=== PATIENT | female | born 1990 | race African-American/Black ===

== ENCOUNTER 2022-10-27 00:11 | Emergency (ER) | payer MEDICARE, MEDICAID ==
[~2022-10-27] VITALS: Ht 170.2 cm; Wt 108.9 kg
[2022-10-27 00:16] VITALS: BP 138/69
[2022-10-27 00:55] LABS: BASOPHILS # (AUTO) 0.1 K/uL (0.00-0.22); BASOPHILS % (AUTO) 1.1 % (0.0-2.0); EOSINOPHILS # (AUTO) 0.1 K/uL (0-0.4); EOSINOPHILS % (AUTO) 0.5 % (0.0-4.0); HEMATOCRIT 37.3 % (36-48); HEMOGLOBIN 11.4 g/dL (12.0-16.0); LYMPHOCYTES # (AUTO) 1.8 K/uL (2.5-16.5); LYMPHOCYTES % (AUTO) 17.7 % (20.5-51.1); MEAN CORPUSCULAR HEMOGLOBIN 22 pg (27-31); MEAN CORPUSCULAR HGB CONC 31 g/dL (33-37); MEAN CORPUSCULAR VOLUME 72.5 fL (80-94); MONOCYTES # (AUTO) 0.7 K/uL (0.8-1.0); MONOCYTES % (AUTO) 6.8 % (1.7-9.3); NEUTROPHILS # (AUTO) 7.3 K/uL (1.8-7.7); NEUTROPHILS % (AUTO) 73.9 % (42.2-75.2); PLATELET COUNT (AUTO) 437 K/uL (140-450); RED BLOOD CELL COUNT(AUTO) 5.15 MIL/uL (4.20-5.40); RED CELL DISTRIBUTION WIDTH 17.1 % (11.6-13.7); WHITE BLOOD COUNT (AUTO) 9.9 K/uL (4.8-10.8)
[2022-10-27 01:31] LABS: ACETAMINOPHEN 4.5 ug/ml (10-30); ALBUMIN 3.4 g/dL (3.4-5.0); ANION GAP 15.9 (8-16); ASPARTATE AMINOTRANSFERASE 15 U/L (15-37); CARBON DIOXIDE 25.4 mmol/L (21-32); CHLORIDE 100 mmol/L (98-107); CREATININE 1.1 mg/dL (0.6-1.3); GFR ARICAN-AMERICAN 74 mL/min (>90); GLUCOSE 215 mg/dL (74-106); POTASSIUM 4.3 mmol/L (3.5-5.1); SODIUM SERUM 137 mmol/L (136-145); TOTAL BILIRUBIN 0.2 mg/dL (0.0-1.0); UREA NITROGEN, BLOOD 16 mg/dL (7-18)
[2022-10-27 01:32] LABS: SALICYLATE < 2.8 mg/dL (2.8-20.0)
--- NOTE | 2022-10-27 01:59 | NUR ---
PT IN GOWN ALL PERSONAL BELONGINGS WENT WITH MOTHER. PT HAS HX OF AUTONOMIC DYSREFLEXIA. 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 PT IS IN VIEW FROM NURSES STATION.
--- NOTE | 2022-10-27 02:11 | NUR ---
COVID SWABS COLLECTED AND SENT TO LAB
[2022-10-27 02:49] LABS: BARBITURATE, URINE NEGATIVE ng/ml (NEG <=200); BENZODIAZEPINE, URINE NEGATIVE ng/mL (NEG <=200); CANNABINOID, URINE NEGATIVE ng/mL (NEG <=50); COCAINE, URINE NEGATIVE ng/mL (NEG <=300); OPIATE, URINE NEGATIVE ng/mL (NEG <=2000); PHENCYCLIDINE SCREEN,URINE NEGATIVE ng/mL (NEG <=25)
--- NOTE | 2022-10-27 04:51 | NUR ---
PT SLEEPING ON BEDSIDE TUBING TESTER. RESP EVEN AND UNLABORED.
--- NOTE | 2022-10-27 08:35 | NUR ---
TELE PSYCH CONSULT AT BEDSIDE. .
--- NOTE | 2022-10-27 08:41 | NUR ---
Tari leslie in [facility] - 10/27/22 at 0842 by EZIO JULISSA EVERETT,
--- NOTE | 2022-10-27 08:41 | NUR ---
PSYCH CONSULT RECOMMENDS 5150 HOLD FOR DANGER TO SELF AND TO START ON MEDICATIONS AT THIS TIME. AWAITING MEDICATION ORDERS, JULISSA EVERETT HAS BEEN CALLED TO WRITE HOLD.
--- NOTE | 2022-10-27 08:43 | NUR ---
JULISSA EVERETT S/W CODI. WILL NOTIFY OFFICER TO COME WRITE A HOLD.
--- NOTE | 2022-10-27 09:56 | NUR ---
JULISSA EVERETT S/W CODI STILL WAITING FOR AN OFFICER TO WRITE A HOLD.
[2022-10-27] MEDS: FLUoxetine 20 MG CAP PO SCH (10:36)
--- NOTE | 2022-10-27 10:38 | NUR ---
PT AWAKE AND CALM, PT INFORMED PD HAS BEEN CALLED TO PLACE ON HOLD FOR SI. NAOMIE AT BEDSIDE , PT PLACED ON GOWN AND SAFETY MAINTAINED
--- NOTE | 2022-10-27 11:50 | NUR ---
JULISSA EVERETT S/W CODI, FOLLOW UP STILL PENDING FOR AN OFFICER TO ARRIVE ON SCENE TO WRITE A HOLD.
--- NOTE | 2022-10-27 13:19 | NUR ---
JULISSA EVERETT CALLED. "CALL LINE STILL BUSY" S/W CODI.
--- NOTE | 2022-10-27 14:09 | NUR ---
JULISSA PD AT [facility] Addendum: 10/27/22 at 1513 by PHSEP PT ON 9230 HOLD- DTS PLACED ON 10/27/22 @0711 BY OFFICER [id number], JULISSA PD
--- NOTE | 2022-10-27 15:14 | NUR ---
Packet faxed to: [facility]
--- NOTE | 2022-10-27 15:55 | NUR ---
CRUZ PIMENTEL FROM [facility] CALLED, REQUESTED LAB RESULTS, VS, PT STATE, WILL EVALUATE CASE AND WILL CALL BACK WITH UPDATE.
--- NOTE | 2022-10-27 16:04 | NUR ---
CLAYTON FROM [facility] CALLED, REQUESTED PT CURRENT STATE,WILL FOLLOW UP AFTER REVIEWING CHART.
--- NOTE | 2022-10-27 16:32 | NUR ---
SARY DUPREE FROM [facility] CALLED TO REQUEST UPDATED BP AND GLUCOSE. WILL FOLLOW UP WHEN BED AVAILABLE.
--- NOTE | 2022-10-27 18:30 | NUR ---
MELINA FROM [facility] CALLED TO VERIFY INFORMATION. WILL FOLLOW UP ON POTENTIAL ACCEPTANCE.
--- NOTE | 2022-10-27 19:08 | NUR ---
PT SOILED, CHANGED W/NASRIN AKBAR, PT REQUESTED ICE CHIPS/GIVEN
[2022-10-27] MEDS ORDERED: ASPI-1794 PO (19:30)
[2022-10-27] MEDS ORDERED: SITA100T8 PO (19:30)
[2022-10-27] MEDS ORDERED: ATOR10TA51 PO (19:30)
[2022-10-27] MEDS ORDERED: LISI5TAB24 PO (19:30)
[2022-10-27] MEDS ORDERED: DULO-29 PO (19:30)
[2022-10-27] MEDS ORDERED: METO-747 PO (19:30)
[2022-10-27] MEDS ORDERED: METF-352 PO (19:30)
[2022-10-27] MEDS ORDERED: FERR-149 PO (19:30)
[2022-10-27] MEDS ORDERED: GABA800T6 PO (19:30)
[2022-10-27] MEDS ORDERED: BACL10TA4 PO (19:30)
[2022-10-27] MEDS ORDERED: AMLO-3 PO (19:30)
[2022-10-27] MEDS ORDERED: APIX5TAB PO (19:30)
--- NOTE | 2022-10-27 19:30 | NUR ---
MED REQ COMPLETED, INFORMED
--- NOTE | 2022-10-27 19:36 | NUR ---
REPORT GIVEN TO DYLON PIMENTEL.
--- NOTE | 2022-10-27 19:45 | NUR ---
PT IS AWAKE AND ALERT, EATING WITH MOM AT BEDSIDE. ALL NEEDS MET AT THIS TIME. BED LOCKED IN LOWEST POSITION, SIDE RAILS X2 FOR SAFETY.
[2022-10-27] MEDS ORDERED: amLODIPine 5 MG TAB PO ONE (19:50)
[2022-10-27] MEDS ORDERED: amLODIPine 5 MG TAB ONE (20:55)
[2022-10-27] MEDS: BACLOFEN 10 MG TAB PO SCH (20:59)
[2022-10-27] MEDS: GABAPENTIN 100 MG CAP PO SCH (20:59)
[2022-10-27] MEDS: APIXABAN 2.5 MG TAB PO SCH (20:59)
--- NOTE | 2022-10-27 23:15 | NUR ---
PT'S DIAPER CHANGED. PT IS SIDE LYING, STATES SHE IS COMFORTABLE. PT PROVIDED WITH ICE CHIPS PER REQUEST. ALL NEEDS MET AT THIS TIME. BED LOCKED IN LOWEST POSITION, SIDE RAILS X2 FOR SAFETY.
--- NOTE | 2022-10-28 02:37 | NUR ---
PT'S DIAPER CHANGED, PT SELF REPOSITIONS. ALL NEEDS MET AT THIS TIME. SIDE RAILS X2 FOR SAFETY.
--- NOTE | 2022-10-28 05:42 | NUR ---
PT APPEARS TO BE RESTING WITH EQUAL RISE AND FALL OF CHEST WALL. OPENS EYES TO SOUND. BED LOCKED IN LOWEST POSITION, SIDE RAILS X2 FOR SAFETY.
[2022-10-28] MEDS: DULoxetine 30 MG CAPDR PO SCH (08:11)
[2022-10-28] MEDS: ECOTRIN 81 MG TABEC PO SCH (08:12)
[2022-10-28] MEDS: BACLOFEN 10 MG TAB PO SCH ×3 (08:12→17:10)
[2022-10-28] MEDS: FLUoxetine 20 MG CAP PO SCH (08:12)
[2022-10-28] MEDS: APIXABAN 2.5 MG TAB PO SCH ×2 (08:12→21:06)
[2022-10-28] MEDS: ATORVASTATIN 20 MG TAB PO SCH (08:12)
[2022-10-28] MEDS: FERROUS SULFATE 325 MG TABEC PO SCH (08:12)
[2022-10-28] MEDS: metFORMIN 500 MG TAB PO SCH (08:21)
[2022-10-28] MEDS: GABAPENTIN 100 MG CAP PO SCH ×3 (08:22→17:10)
[2022-10-28] MEDS: lisinopriL 5 MG TAB PO SCH (08:22)
[2022-10-28] MEDS: METOPROLOL 50 MG TAB PO SCH (08:22)
--- NOTE | 2022-10-28 19:30 | NUR ---
Assumed care of patient, awake at this time. No c/o pain or discomfort.
--- NOTE | 2022-10-29 00:54 | NUR ---
PUREWIC SET IN PLACE FOR PT . PT IS SLEEPING RESP EVEN AND UNLABORED . PENDING PLACEMENT. PT IS ANSWERING AND ACTING APPROPRIATELY. PT IS IN VIEW FROM NURSES STATION.
--- NOTE | 2022-10-29 03:30 | NUR ---
Resting comfortably at this time, no c/o discomfort, rise and fall of chest noted.
--- NOTE | 2022-10-29 06:05 | NUR ---
Pt resting comfortably at this time, rise and fall of chest noted, no s/s pain
--- NOTE | 2022-10-29 07:34 | NUR ---
JULISSA FLORES S/W ANNM ARIE, WILL SEND ANOTHER OFFICER TO CHANGE THE HOLD TIME.
--- NOTE | 2022-10-29 07:42 | NUR ---
JULISSA EVERETT, FOLLOWED UP WITH YAZMIN JESUSULIAR OFFICER CANT CHANGE THE TIME.
--- NOTE | 2022-10-29 09:00 | NUR ---
pt provided w/ breakfast. "not right now". left at bedside
[2022-10-29] MEDS: ECOTRIN 81 MG TABEC PO SCH (10:01)
[2022-10-29] MEDS: FLUoxetine 20 MG CAP PO SCH (10:04)
[2022-10-29] MEDS: DULoxetine 30 MG CAPDR PO SCH (10:05)
[2022-10-29] MEDS: APIXABAN 2.5 MG TAB PO SCH ×2 (10:07→21:10)
[2022-10-29] MEDS: METOPROLOL 50 MG TAB PO SCH (10:08)
[2022-10-29] MEDS: ATORVASTATIN 20 MG TAB PO SCH (10:09)
[2022-10-29] MEDS: lisinopriL 5 MG TAB PO SCH (10:10)
[2022-10-29] MEDS: BACLOFEN 10 MG TAB PO SCH ×3 (10:11→17:10)
[2022-10-29] MEDS: FERROUS SULFATE 325 MG TABEC PO SCH (10:22)
[2022-10-29] MEDS: metFORMIN 500 MG TAB PO SCH (11:01)
--- NOTE | 2022-10-29 11:45 | NUR ---
MOTHER AT BEDSIDE, PT CALM SITTING UPRIGHT
[2022-10-29] MEDS ORDERED: GABAPENTIN 300 MG CAP ONE ×3 (13:01→17:07)
[2022-10-29] MEDS ORDERED: GABAPENTIN 100 MG CAP ONE ×3 (13:01→17:07)
[2022-10-29] MEDS: GABAPENTIN 600 MG, GABAPENTIN 200 MG PO SCH ×4 (13:08→17:11)
--- NOTE | 2022-10-29 16:16 | NUR ---
PT AWAKE, SITTING UPRIGHT READING A BOOK
--- NOTE | 2022-10-29 19:22 | NUR ---
REPORT GIVEN TO JORGE
--- NOTE | 2022-10-29 19:51 | NUR ---
PT IS SITTING UP IN BED RESP EVEN AND UNLABORED. PENDING EXP OF 5150 HOLD. PT DENIES ANY PAIN OR SOB AT THIS TIME. PUREWIC IN PLACE
--- NOTE | 2022-10-29 23:08 | NUR ---
BED BATH GIVEN TO PATIENT
--- NOTE | 2022-10-30 01:17 | NUR ---
Patient asleep and comfortable in bed.
--- NOTE | 2022-10-30 03:11 | NUR ---
ALL POSSIBLE TRANSFERS STILL PENDING . 5150 HOLD TO ON THE @ 1430. PT AWARE
--- NOTE | 2022-10-30 05:42 | NUR ---
Patient asleep and comfortable in bed.
--- NOTE | 2022-10-30 07:26 | NUR ---
REPORT RECEIVED FROM JORGE
--- NOTE | 2022-10-30 08:10 | NUR ---
PT REFUSED TO HAVE BREAKFAST, STATED "I'M NOT HUNGRY RIGHT NOW, THANK YOU"
--- NOTE | 2022-10-30 08:30 | NUR ---
PT IN ROOM, CALM, STATES "I'M FEELING A LOT BETTER AND CAN'T WAIT TO GO HOME. I'M CALLING MY DR TO ADJUST MY MEDICATIONS."
[2022-10-30] MEDS: lisinopriL 5 MG TAB PO SCH (09:00)
[2022-10-30] MEDS: APIXABAN 2.5 MG TAB PO SCH (09:00)
[2022-10-30] MEDS: ATORVASTATIN 20 MG TAB PO SCH (09:00)
[2022-10-30] MEDS: FLUoxetine 20 MG CAP PO SCH (09:00)
--- NOTE | 2022-10-30 09:06 | NUR ---
PT ON TELEPSYCH RE EVALUATION W/ MD SIERRA
--- NOTE | 2022-10-30 09:22 | NUR ---
ON STANDBY AT BEDSIDE W/DR SIERRA ZOOM CALL WITH PT FOR PSYCH RE-EVALUATION. DR SIERRA STATED PT IS CLEARED TO RETURN HOME. NOTIFIED.
--- NOTE | 2022-10-30 10:10 | NUR ---
UNABLE TO PULL SCHEDULED MEDICATION . PT UNAVAILABLE ON OMNICELL. PHARMACY NOTIFIED
--- NOTE | 2022-10-30 10:42 | NUR ---
MOM CALLED AND NOTIFIED OF PT STATUS AND D/C. ETA @1200
[2022-10-30] MEDS: BACLOFEN 10 MG TAB PO SCH ×2 (10:58→11:03)
[2022-10-30] MEDS: FERROUS SULFATE 325 MG TABEC PO SCH (10:58)
[2022-10-30] MEDS: DULoxetine 30 MG CAPDR PO SCH (10:59)
[2022-10-30] MEDS: METOPROLOL 50 MG TAB PO SCH (11:02)
[2022-10-30] MEDS: ECOTRIN 81 MG TABEC PO SCH (11:04)
[2022-10-30] MEDS: metFORMIN 500 MG TAB PO SCH (11:05)
[2022-10-30] MEDS: GABAPENTIN 600 MG, GABAPENTIN 200 MG PO SCH ×4 (11:06→11:08)
[2022-10-30] MEDS ORDERED: FLUO20CA27 PO (13:00)
[2022-10-30 13:02] VITALS: BP 132/62
--- NOTE | 2022-10-30 13:02 | NUR ---
Patient discharged with v/s stable. Written and verbal after care instructions given and explained. Patient verbalized understanding. Ambulatory with steady gait. All questions addressed prior to discharge. Advised to follow up with PMD. MENTAL RESORCE INFORMATION PACKET GIVEN
--- NOTE | 2022-10-30 16:37 | NUR ---
The patient's care was reviewed and supervised by [facility], RN. The patient's care was reviewed and supervised by [facility], RN.
== END 2022-10-30 13:02 | disposition home or self-care (01) ==
LOC: MED 00:11
DX: R45.851 Suicidal ideations (principal); E11.9 Type 2 diabetes mellitus without complications; Z20.822 Contact with and (suspected) exposure to COVID-19; Z79.899 Other long term (current) drug therapy; Z79.82 Long term (current) use of aspirin; Z79.01 Long term (current) use of anticoagulants
CPT/HCPCS: 36415; 80053; 80305; 81025; 85025; 87426; 87635; 99285; C9803; G0480; G0482; 45330

== ENCOUNTER 2023-12-25 23:11 | Emergency (ER) | payer MEDICARE, MEDICAID ==
[~2023-12-25] VITALS: Ht 170.2 cm; Wt 104.3 kg
[~2023-12-25 23:11] MED LIST: AMLO-3 PO; APIX5TAB PO; ASPI-1794 PO; ATOR10TA51 PO; BACL10TA4 PO; DULO-29 PO; FERR-149 PO; FLUO20CA27 PO; GABA800T6 PO; LISI5TAB24 PO; METF-352 PO; METO50TE63 PO; SITA100T8 PO
[2023-12-25 23:16] VITALS: BP 99/62; PULSE 102; RESP 16; TEMP 97.4; O2SAT 100
[2023-12-26 00:46] LABS: ANION GAP 14.3 (8-16); CALCIUM 9.1 mg/dL (8.5-10.1); CARBON DIOXIDE 26.3 mmol/L (21-32); CREATININE 1.1 mg/dL (0.6-1.3); POTASSIUM 4.6 mmol/L (3.5-5.1)
[2023-12-26 01:07] VITALS: BP 99/62; PULSE 102; RESP 16; TEMP 97.4; O2SAT 100
== END 2023-12-26 01:07 | disposition home or self-care (01) ==
LOC: MED 23:11
DX: E87.5 Hyperkalemia (principal); R05.9 Cough, unspecified; E11.9 Type 2 diabetes mellitus without complications; Z79.899 Other long term (current) drug therapy; Z79.82 Long term (current) use of aspirin; Z79.01 Long term (current) use of anticoagulants
CPT/HCPCS: 36415; 80048; 99283